=== PATIENT | female | born 1945 | race Caucasian/White ===

== ENCOUNTER 2017-11-10 17:48 | Inpatient (IN) | payer MEDICARE ==
[2017-11-10 18:41] LABS: #Eosinphils 0.2 thou/uL (0.0-0.7); #Lymphocytes 2.2 thou/uL (1.20-3.40); #Monocytes 0.5 thou/uL (0.11-0.59); #Neutrophils 4.3 thou/uL (1.40-6.50); %Basophils 0.5 % (0.0-1.0); %Eosinophils 3.2 % (0.0-10.0); %Lymphocytes 29.8 % (21.0-51.0); %Monocytes 7.1 % (0.0-10.0); %Neutrophils 59.5 % (42.0-75.0); Hemoglobin 13.3 g/dL (12.0-16.0); Mean Corpuscular HGB CONC 32.5 g/dL (32.0-36.0); Mean Corpuscular Hemoglobin 29.1 pg (27.0-31.0); Mean Corpuscular Volume 89.5 fl (81.0-99.0); Mean Platelet Volume 8.3 fL (7.4-10.4); Platelet Count 252 thou/uL (130-400); RBC Distribution Width 12.4 % (11.5-14.5); Red Blood Cell (RBC) Count 4.56 mill/uL (4.20-5.40); White Blood Cell (WBC) Count 7.3 thou/uL (4.8-10.8)
[2017-11-10 19:00] LABS: ALT (SGPT) 21 U/L (8-55); AST (SGOT) 20 U/L (5-34); Alkaline Phosphatase 48 U/L (40-150); Anion Gap 10 mmol/L (10-20); BUN (Urea Nitrogen) 19 mg/dL (9.8-20.1); Bilirubin, Total 0.6 mg/dL (0.2-1.2); Calc. Creatinine Clearance 0 mL/min (70-130); Calcium 10.5 mg/dL (7.8-10.44); Carbon Dioxide 27 mmol/L (23-31); Chloride 106 mmol/L (98-107); Estimated GFR-MDRD 59; Globulin 3.2 g/dL (2.4-3.5); Glucose 100 mg/dL (83-110); Potassium 4.3 mmol/L (3.5-5.1); Protein, Total 7.2 g/dL (6.0-8.3); Sodium 139 mmol/L (136-145)
[2017-11-10] MEDS ORDERED: Sodium Chloride 0.9% 1,000 ML IV SCH ×2 (20:15→22:15)
[2017-11-10] MEDS ORDERED: Ondansetron ODT 4 MG TAB SL PRN (21:47)
[2017-11-10] MEDS ORDERED: Ondansetron HCl/PF 4 MG/2 ML Vial IVP PRN (21:47)
[2017-11-10 22:53] VITALS: BMI 28.8
[2017-11-10] MEDS ORDERED: GoLYTELY 4,000 ml Bottle PO SCH (23:15)
[2017-11-10] MEDS: Sodium Chloride 0.9% 1,000 ML IV SCH (23:26)
[2017-11-11] MEDS ORDERED: Ondansetron ODT 4 MG TAB PO PRN (03:16)
[2017-11-11] MEDS ORDERED: Ondansetron HCl/PF 4 MG/2 ML Vial IVP PRN ×2 (03:16→10:36)
[2017-11-11] MEDS ORDERED: Calcium Carbonate 500 MG ChewTAB PO PRN (03:16)
[2017-11-11] MEDS ORDERED: Acetaminophen 325 MG TAB PO PRN (03:16)
[2017-11-11 03:24] LABS: Hemoglobin 10.3 g/dL (12.0-16.0)
[2017-11-11] MEDS ORDERED: Pantoprazole 40 MG VIAL IVP SCH (03:30)
--- NOTE | 2017-11-11 03:39 | HP ---
DATE OF ADMISSION: 11/10/2017 Patient was seen and examined on 11/10/2017. CHIEF COMPLAINT: Painless lower gastrointestinal bleeding. HISTORY OF PRESENT ILLNESS: Patient is a 72-year-old female with atrial fibrillation, currently on 3 25 mg aspirin, presented to the emergency room with above complaints. Around 3:30 p.m. while she was at home, patient noticed bright red blood in the toilet with small shayla unt of stool. She had another 2 episodes in the emergency room and the fourth episode around 10:00 p .m. while on the floor. She denied any abdominal pain, however, felt slightly nauseous. She denies any use of nonsteroidal anti-inflammatory drug use. She denies any history of EGD or colonoscopy in the past. No similar episodes in the past. She felt somewhat lightheaded and weak; however, denies any syncope, chest pain, or palpitations. PAST MEDICAL HISTORY: 1. Atrial fibrillation. 2. Hypothyroidism. PAST SURGICAL HISTORY: 1. Tubal ligation. 2. section. 3. Left lumpectomy. 4. Right wrist resection. ALLERGIES: Patient is allergic to PENICILLIN and SULFA. HOME MEDICATIONS: Aspirin 325 mg daily, levothyroxine 112 mcg daily, Toprol-XL 12.5 mg at bedtime, m ultivitamin daily, calcium with vitamin D daily. SOCIAL HISTORY: Patient currently lives at home. No smoking, alcohol, drug use. She is FULL CODE, makes her own decision with the help of her family. FAMILY HISTORY: Both parents with CVA. REVIEW OF SYSTEMS: The following complete review of systems was negative, unless otherwise mentioned in the HPI or below: Constitutional: Weight loss or gain, ability to conduct usual activities. Sk in: Rash, itching. Eyes: Double vision, pain. ENT/Mouth: Nose bleeding, neck stiffness, pain, te nderness. Cardiovascular: Palpitations, dyspnea on exertion, orthopnea. Respiratory: Shortness of breath, wheezing, cough, hemoptysis, fever, or night sweats. Gastrointestinal: Poor appetite, abdo kiara pain, heartburn, nausea, vomiting, constipation, or diarrhea. Genitourinary: Urgency, frequen cy, dysuria, nocturia. Musculoskeletal: Pain, swelling. Neurologic/Psychiatric: Anxiety, depressi on. Allergy/Immunologic: Skin rash, bleeding tendency. PHYSICAL EXAMINATION: VITAL SIGNS: In the emergency room, temperature 98.6, respiration 18, pulse of 76, blood pressure of 165/83, O2 saturation 98% on room air. GENERAL: A 72-year-old female in no apparent distress, feels generally weak. HEENT: Head atraumatic, normocephalic. Sclerae anicteric. Pale conjunctivae. No oral lesion. NECK: Supple, no JVD, no carotid bruit. LUNGS: Clear to auscultation bilaterally. No wheezing, rales, or rhonchi. HEART: S1, S2 present. Regular rate and rhythm. No rubs or gallops appreciated. ABDOMEN: Soft, nontender, bowel sounds present. No rebound or guarding. Rectal examination done in the emergency room showed gross blood per ER report. EXTREMITIES: No edema or calf tenderness. NEUROLOGIC: Grossly nonfocal. Moves all four extremities. PSYCHIATRY: Alert, awake, oriented x3. SKIN: Warm and dry. LYMPH NODES: No palpable lymph nodes in the neck. PERIPHERAL VASCULAR: Radial pulses palpable bilaterally. MUSCULOSKELETAL: No joint swelling or tenderness. LABORATORY DATA AND X-RAY FINDINGS: H&H on admission 13.3, repeat H&H at 2230 was 11.0. BUN 19, creatinine 0.93 with normal sodium, potassium, chloride, calcium of 10.5. Stool for occult b lood was positive. Telemetry monitoring by my review showed sinus rhythm. Chest x-ray by my review from last admission showed borderline cardiomegaly. Stress test was negative last admission. Echocardiogram showed normal EF, last admission. IMPRESSION: 1. Painless lower gastrointestinal bleeding suspected secondary to diverticular bleed. 2. Anemia secondary to gastrointestinal blood loss. 3. Hypotension. Lowest blood pressure was 85/53 at around 2200. 4. Paroxysmal atrial fibrillation on aspirin 325 mg daily. 5. Chronic kidney disease, stage 2. 6. Hypothyroidism. PLAN: Patient was transferred to intermediate care unit due to hypotension after another episode of GI bleeding while on the observation floor. Patient will be changed to inpatient admit. Hold aspiri n for now. I discussed with GI on-call, Dr. Ibarra. GoLYTELY will be started. H&H will be monitored every 4 hourly for now. We will check orthostatic vitals in a.m. We will transfuse if the H&H drop s below 7. Plan of care was discussed with the patient in detail. She stated understanding.
[2017-11-11] MEDS: Sodium Chloride 0.9% 1,000 ML IV SCH ×3 (04:49→20:36)
[2017-11-11 06:46] LABS: Hemoglobin 9.9 g/dL (12.0-16.0)
[2017-11-11 07:23] LABS: Anion Gap 6 mmol/L (10-20); BUN (Urea Nitrogen) 17 mg/dL (9.8-20.1); Calc. Creatinine Clearance 94 mL/min (70-130); Calcium 8.9 mg/dL (7.8-10.44); Carbon Dioxide 25 mmol/L (23-31); Chloride 110 mmol/L (98-107); Estimated GFR-MDRD 78; Glucose 102 mg/dL (83-110); Potassium 4.3 mmol/L (3.5-5.1); Sodium 137 mmol/L (136-145)
[2017-11-11] MEDS: Pantoprazole 40 MG VIAL IVP SCH ×2 (08:08→20:37)
[2017-11-11] MEDS ORDERED: Chloraseptic Spray 180 ml Bottle PO PRN (08:44)
[2017-11-11] MEDS ORDERED: hydrALAZINE 20 MG/ML VIAL SLOW IVP PRN (08:44)
[2017-11-11] MEDS ORDERED: Loratadine 10 MG TAB PO PRN (08:44)
[2017-11-11] MEDS ORDERED: Loperamide HCl 2 MG CAP PO PRN (08:44)
[2017-11-11] MEDS ORDERED: Eucerin (Mineral Oil/Petrolatum,White) 30 gm Jar TOP PRN (08:44)
[2017-11-11] MEDS ORDERED: Mag-Al 1200 mg/1200 mg/30 ML UDCUP PO PRN (08:44)
[2017-11-11] MEDS ORDERED: HYDROcodone/Acetaminophen 5/325 mg Tablet PO PRN (08:44)
[2017-11-11] MEDS ORDERED: Senokot 8.6 MG TAB PO PRN (08:44)
[2017-11-11] MEDS ORDERED: Sodium Chloride 0.65% Nasal 44 ML BOT EA NARE PRN (08:44)
[2017-11-11] MEDS ORDERED: Zolpidem Tartrate 5 MG TAB PO PRN (08:44)
[2017-11-11] MEDS ORDERED: Artificial Tears 18 DROP/0.9 ML EA EYE PRN (08:44)
[2017-11-11] MEDS ORDERED: Milk Of Magnesia 30 ML UDCUP PO PRN (08:44)
[2017-11-11] MEDS ORDERED: Diabetic Tussin 200 MG/10 ML UDCUP PO PRN (08:44)
--- NOTE | 2017-11-11 09:50 | CON ---
DATE OF CONSULTATION: 11/11/2017 REASON FOR CONSULTATION: Hematochezia. CONSULTING PHYSICIAN: Santiago Duran M.D. HISTORY OF PRESENT ILLNESS: The patient is a 72-year-old female with past medical history of hypothy roidism and atrial fibrillation on full strength aspirin, presenting with complaints of hematochezia. She states that she was in her usual state of health until approximately 3:00 yesterday when she quintanilla d "gurgling of her stomach" that was shortly followed by diarrhea bowel movement. The diarrhea bowel movement that she had consisted of a mix of bright red blood per rectum as well as darker colored st ool. Blood was present both in the toilet and on the toilet paper. Subsequently, she has 3 addition al grossly bloody bowel movements (2 more at home and one in the ER) with very little blood mixed and very little stool mixed in with the blood. During these particular episodes of hematochezia, she de nied any other symptoms including nausea, vomiting, fevers, chills, abdominal pain, hematemesis or me socrates. She denies any upper or lower endoscopy in the past. She also denies any family history of co zbigniew polyps or colon cancer. REVIEW OF SYSTEMS: A 10 review category review of systems was obtained with all responses negative e xcept for the pertinent positives as listed in the HPI. PAST MEDICAL HISTORY: As per HPI. PAST SURGICAL HISTORY: Bilateral tubal ligation, section, left breast lumpectomy and right wrist surgery. FAMILY HISTORY: Stroke (mother and father). Denies any GI malignancies. SOCIAL HISTORY: Denies any tobacco, alcohol, or illicit drug use. OUTPATIENT MEDICATIONS: Reviewed. ALLERGIES: PENICILLIN and SULFA. PHYSICAL EXAMINATION: VITAL SIGNS: Temperature 98.5, pulse 66, blood pressure 115/50, respiratory rate 16, satting 98% on room air. GENERAL: The patient is lying in bed in no acute distress. Alert and oriented x4. NECK: Supple. No JVD noted. CARDIOVASCULAR: Regular rate and rhythm. No discernible murmurs, gallops or rubs. RESPIRATORY: Clear to auscultation bilaterally with no discernible wheezes or rales. ABDOMEN: Hyperactive bowel sounds. Soft, nontender and nondistended. EXTREMITIES: No cyanosis, clubbing or edema. LABORATORY DATA: CBC with white blood cell count of 7.3, hemoglobin 9.9, hematocrit 30.1, platelets 252. Chemistry with sodium of 137, potassium 4.3, chloride 110, CO2 25, BUN 17, creatinine 0.73, glu cose 102, AST 20, ALT 21, alkaline phosphatase 48, and total bilirubin 0.6. IMAGING DATA: No current GI imaging is available for review. ASSESSMENT AND PLAN: The patient is a 72-year-old female with past medical history of hypothyroidism and atrial fibrillation on full strength aspirin, presenting with hematochezia concerning for divert icular bleeding. Hematochezia. The patient is presenting with acute onset of grossly bloody bowel movements with no o ther associated symptoms. Given the grossly bloody bowel movements and a significant drop in her hem oglobin and hematocrit, this is highly suspicious for a diverticular bleed given the arterial nature of these types of bleeds and while she has never had a colonoscopy, the differential could also inclu de AVMs, Dieulafoy lesions, colitis, stercoral colitis (much less likely) internal hemorrhoids and/or malignancy. RECOMMENDATIONS: 1. Would continue to trend hemoglobin and hematocrit and transfuse as necessary to maintain an hemog lobin and hematocrit of 7/21. 2. Would continue to monitor clinically for signs of active gastrointestinal bleeding. 3. Please make patient n.p.o. and we will plan for colonoscopy later this morning. She has already been given the GoLYTELY in preparation for this procedure. 4. Further recommendations to follow colonoscopy. We will continue to follow. Please call with any questions.
[2017-11-11] MEDS: Levothyroxine Sodium 112 MCG TAB PO SCH (10:24)
[2017-11-11] MEDS ORDERED: Promethazine HCl 25 MG/ML VIAL IM PRN (10:36)
[2017-11-11] MEDS ORDERED: Promethazine HCl 25 MG/ML VIAL SLOW IVP PRN (10:36)
--- NOTE | 2017-11-11 11:21 | PDOC.PN ---
- Subjective Encounter Start Date: 11/11/17 Encounter Start Time: 09:50 -: old records requested/rev Patient seen and examined. No new complaints. No overnight events pt does not have any further bleeding - Objective Resuscitation Status: Resuscitation Status FULL:Full Resuscitation MAR Reviewed: Yes Vital Signs & Weight: Vital Signs (12 hours) Temp Pulse Resp BP Pulse Ox 11/11/17 08:00 98.5 F 66 16 98 11/11/17 07:00 98.5 F 66 16 115/50 L 98 11/11/17 04:00 97.3 F L 71 17 121/55 L 96 Weight Weight 188 lb 5 oz I&O: 11/10/17 11/11/17 11/12/17 06:59 06:59 06:59 Intake Total 5150 Balance 5150 Result Diagrams: 11/11/17 06:37 11/11/17 06:37 EKG Reviewed by me: Yes Phys Exam - Physical Examination Constitutional: NAD HEENT: PERRLA, moist MMs, sclera anicteric Neck: no JVD, supple Respiratory: no wheezing, no rales, no rhonchi Cardiovascular: RRR, no significant murmur, no rub Gastrointestinal: soft, non-tender, no distention, positive bowel sounds Musculoskeletal: no edema, pulses present Neurological: non-focal, normal sensation, moves all 4 limbs Lymphatic: no nodes Psychiatric: normal affect, A&O x 3 Skin: no rash, normal turgor Dx/Plan (1) Acute lower GI bleeding Code(s): K92.2 - GASTROINTESTINAL HEMORRHAGE, UNSPECIFIED Status: Acute Comment: likely diverticular bleed (2) Anemia due to acute blood loss Code(s): D62 - ACUTE POSTHEMORRHAGIC ANEMIA Status: Acute (3) Hypotension due to blood loss Code(s): I95.89 - OTHER HYPOTENSION Status: Resolved (4) CKD (chronic kidney disease) stage 2, GFR 60-89 ml/min Code(s): N18.2 - CHRONIC KIDNEY DISEASE, STAGE 2 (MILD) Status: Chronic (5) Hypothyroidism Code(s): E03.9 - HYPOTHYROIDISM, UNSPECIFIED Status: Chronic (6) Paroxysmal atrial fibrillation Code(s): I48.0 - PAROXYSMAL ATRIAL FIBRILLATION Status: Chronic - Plan cont current plan of care, plan discussed w/ family * today plan for colonoscopy * will monitor today for any recurrent bleeding * repeat labs tomorrow * medication reviewed as below * symptomatic treatment * transfer to medical. Review of Systems - Review of Systems Eyes: negative: Pain, Vision Change, Conjunctivae Inflammation, Eyelid Inflammation, Redness, Other ENT: negative: Ear Pain, Ear Discharge, Nose Pain, Nose Discharge, Nose Congestion, Mouth Pain, Mouth Swelling, Throat Pain, Throat Swelling, Other Respiratory: negative: Cough, Dry, Shortness of Breath, Hemoptysis, SOB with Excertion, Pleuritic Pain, Sputum, Wheezing Cardiovascular: negative: chest pain, palpitations, orthopnea, paroxysmal nocturnal dyspnea, edema, light headedness, other Gastrointestinal: negative: Nausea, Vomiting, Abdominal Pain, Diarrhea, Constipation, Melena, Hematochezia, Other Genitourinary: negative: Dysuria, Frequency, Incontinence, Hematuria, Retention , Other Musculoskeletal: negative: Neck Pain, Shoulder Pain, Arm Pain, Back Pain, Hand Pain, Leg Pain, Foot Pain, Other Skin: negative: Rash, Lesions, Akira, Bruising, Other - Medications/Allergies Allergies/Adverse Reactions: Allergies Allergy/AdvReac Type Severity Reaction Status Date / Time Penicillins Allergy Unknown Verified 11/10/17 22:10 Sulfa (Sulfonamide Allergy Unknown Verified 11/10/17 22:10 Antibiotics) Medications: Current Medications Acetaminophen (Tylenol) 650 mg PO Q4H PRN PRN Reason: Headache/Fever or Pain Hydrocodone Bitart/Acetaminophen ([place] 5/325) 1 tab PO Q4H PRN PRN Reason: Moderate Pain (4-6) Al Hydroxide/Mg Hydroxide (Maalox) 15 ml PO Q4H PRN PRN Reason: Heartburn or Indigestion Artificial Tears (Tears Naturale) 0 drop EA EYE PRN PRN PRN Reason: Dry Eyes Calcium Carbonate (Tums) 1,000 mg PO Q4H PRN PRN Reason: Heartburn or Indigestion Calcium/Vitamin D (Caltrate 600 + Vit D) 1 tab PO HS [facility] Guaifenesin (Robitussin Sf) 200 mg PO Q4H PRN PRN Reason: Cough Hydralazine HCl (Apresoline) 10 mg SLOW IVP Q4H PRN PRN Reason: Systolic BP > 180 Sodium Chloride (Normal Saline 0.9%) 1,000 mls @ 150 mls/hr IV .Q6H40M [facility] Last Admin: 11/11/17 04:49 Dose: 1,000 mls Iron/Minerals/Multivitamins (Theragran M) 1 tab PO HS [facility] Levothyroxine Sodium (Synthroid) 112 mcg PO 0600 [facility] Last Admin: 11/11/17 10:24 Dose: Not Given Loperamide HCl (Imodium) 2 mg PO PRN PRN PRN Reason: Diarrhea/Loose Stools Loratadine (Claritin) 10 mg PO DAILYPRN PRN PRN Reason: Sinus Symptoms Magnesium Hydroxide (Milk Of Magnesium) 30 ml PO DAILYPRN PRN PRN Reason: Constipation Mineral Oil/White Petrolatum (Eucerin Cream) 0 gm TOP BIDPRN PRN PRN Reason: Dry Skin Ondansetron HCl (Zofran Odt) 4 mg PO Q6H PRN PRN Reason: Nausea/Vomiting Ondansetron HCl (Zofran) 4 mg IVP Q6H PRN PRN Reason: Nausea/Vomiting Ondansetron HCl (Pacu-Zofran) 4 mg IVP ONE PRN PRN Reason: Nausea/Vomiting Stop: 11/11/17 13:36 Pantoprazole Sodium (Protonix) 40 mg IVP Q12HR [facility] Last Admin: 11/11/17 08:08 Dose: 40 mg Phenol (Chloraseptic [place] 180 Ml Bot) 0 ml PO PRN PRN PRN Reason: Sore Throat Promethazine HCl (Pacu-Phenergan) 6.25 mg SLOW IVP ONE PRN PRN Reason: Nausea/Vomiting Stop: 11/11/17 13:36 Promethazine HCl (Pacu-Phenergan) 6.25 mg IM ONE PRN PRN Reason: Nausea/Vomiting Stop: 11/11/17 13:36 Senna (Senokot) 2 tab PO HSPRN PRN PRN Reason: Constipation Sodium Chloride (Flush - Normal Saline) 10 ml IVF Q12HR [facility] Last Admin: 11/11/17 08:08 Dose: 10 ml Sodium Chloride (Flush - Normal Saline) 10 ml IVF PRN PRN PRN Reason: Saline Flush Last Admin: 11/10/17 21:59 Dose: 10 ml Sodium Chloride ([place] Nasal Chromo 0.65%) 0 ml EA NARE QIDPRN PRN PRN Reason: Nasal Congestion Zolpidem Tartrate (Ambien) 5 mg PO HSPRN PRN PRN Reason: Insomnia
--- NOTE | 2017-11-11 11:27 | OP ---
DATE OF PROCEDURE: 11/11/2017 PROCEDURE: Colonoscopy (diagnostic). INDICATION FOR PROCEDURE: Hematochezia. DESCRIPTION OF PROCEDURE: After the risks and benefits of the procedure were explained to the patien t including risks of bleeding, infection, perforation, reactions to anesthesia and/or pain, informed consent was obtained. The patient was then taken to the endoscopy suite where deep sedation was admi nistered via propofol and anesthesia support. The standard colonoscope was then introduced into the rectum and advanced to the terminal ileum with mild difficulty that required manual abdominal pressur e to facilitate passage of the scope. The quality of the prep was good with adequate visualization o f the colonic mucosa seen. The patient tolerated the procedure well with no immediate perioperative complications. COLLINS. The patient had small external hemorrhoids noted on external exam. FINDINGS: 1. Normal-appearing mucosa was seen in the terminal ileum. A moderate amount of old red blood was s een throughout the entire colon, but was amenable to aggressive irrigation and suctioning with adequa te visualization of the colonic mucosa achieved. The mucosa was seen. Normal appearing mucosa was s een at the ileocecal valve and appendiceal orifice. Normal mucosa was seen in the ascending, transve rse, and proximal descending colon. Multiple small and large diverticula were seen in the distal luis carlos cending and sigmoid colons with careful inspection of each diverticular taken. There was no etiology . There is no evidence of active bleeding seen in any of the inspected diverticula. Normal mucosa w as seen in the rectum with small internal hemorrhoids seen on rectal retroflexion. IMPRESSION: 1. Moderate to severe left-sided diverticulosis without any evidence of active bleeding seen during this examination. 2. A 3-4 mm polyp was seen at approximately 50 cm past the anal verge. That was not intervened upon due to recent history of hematochezia. 3. Small internal and external hemorrhoids. RECOMMENDATIONS: 1. Continue to trend H&H and transfuse as necessary to maintain an H&H of 7/21. 2. Continue to monitor clinically for signs of active gastrointestinal bleeding/hematochezia. 3. If she continues to display significant hematochezia, we would consider a tagged red blood cell s can for further localization of the GI bleeding and/or CT angiography to determine source of bleeding . 4. We would consider repeat colonoscopy in light of recurrent hematochezia. 5. We would place the patient on clear liquid diet for now and transfer to higher fiber diet if no f urther evidence of gastrointestinal bleeding. 6. We would avoid any anticoagulation for the next 24-48 hours.
[2017-11-11 12:25] LABS: Hemoglobin 9.9 g/dL (12.0-16.0)
[2017-11-11] MEDS ORDERED: Propofol 200 MG/20 ML VIAL ONE (15:57)
[2017-11-11] MEDS ORDERED: PHENYLEPHRINE-NS 100 MCG/ML 10 ML SYRINGE ONE (15:57)
[2017-11-11 17:55] LABS: Hemoglobin 10.2 g/dL (12.0-16.0)
[2017-11-11] MEDS ORDERED: Non-Formulary Item 1 EACH (Calcium Carbonate/Vitamin D3 [Calcium 600 + Vitamin D] 1 TABLE PO SCH (21:00)
[2017-11-11] MEDS ORDERED: Calcium Carbonate + Vit D 1 TAB PO SCH (21:00)
[2017-11-12 04:20] LABS: #Eosinphils 0.4 thou/uL (0.0-0.7); #Lymphocytes 1.5 thou/uL (1.20-3.40); #Monocytes 0.4 thou/uL (0.11-0.59); #Neutrophils 2.2 thou/uL (1.40-6.50); %Basophils 0.8 % (0.0-1.0); %Eosinophils 7.9 % (0.0-10.0); %Monocytes 9.3 % (0.0-10.0); %Neutrophils 49.1 % (42.0-75.0); Hemoglobin 9.3 g/dL (12.0-16.0); Mean Corpuscular HGB CONC 33.3 g/dL (32.0-36.0); Mean Corpuscular Hemoglobin 30.3 pg (27.0-31.0); Mean Corpuscular Volume 90.9 fl (81.0-99.0); Mean Platelet Volume 8.3 fL (7.4-10.4); Platelet Count 192 thou/uL (130-400); RBC Distribution Width 12.3 % (11.5-14.5); Red Blood Cell (RBC) Count 3.07 mill/uL (4.20-5.40); White Blood Cell (WBC) Count 4.6 thou/uL (4.8-10.8)
[2017-11-12 04:26] LABS: Anion Gap 8 mmol/L (10-20); BUN (Urea Nitrogen) 7 mg/dL (9.8-20.1); Calc. Creatinine Clearance 98 mL/min (70-130); Calcium 9.1 mg/dL (7.8-10.44); Carbon Dioxide 23 mmol/L (23-31); Chloride 114 mmol/L (98-107); Estimated GFR-MDRD 82; Glucose 91 mg/dL (83-110); Potassium 3.8 mmol/L (3.5-5.1); Sodium 141 mmol/L (136-145)
[2017-11-12] MEDS: Sodium Chloride 0.9% 1,000 ML IV SCH (04:51)
[2017-11-12] MEDS: Levothyroxine Sodium 112 MCG TAB PO SCH (06:11)
[2017-11-12] MEDS ORDERED: Sodium Chloride 0.9% 1,000 ML IV SCH (07:45)
--- NOTE | 2017-11-12 10:40 | PDOC.PN ---
- Subjective Encounter Start Date: 11/12/17 Encounter Start Time: 10:00 Patient seen and examined. No new complaints. No overnight events - Objective Resuscitation Status: Resuscitation Status FULL:Full Resuscitation MAR Reviewed: Yes Vital Signs & Weight: Vital Signs (12 hours) Temp Pulse Resp BP BP BP Pulse Ox 11/12/17 08:00 98.5 F 69 20 95 11/12/17 07:43 98.5 F 69 20 133/56 L 95 11/12/17 03:36 98.5 F 70 16 110/41 L 95 11/12/17 00:00 98.5 F 77 16 106/40 L 96 Weight Weight 192 lb 3.2 oz I&O: 11/11/17 11/12/17 11/13/17 06:59 06:59 06:59 Intake Total 5150 4750 Output Total 2800 Balance 5150 1950 Result Diagrams: 11/12/17 03:11 11/12/17 03:11 EKG Reviewed by me: Yes Phys Exam - Physical Examination Constitutional: NAD HEENT: PERRLA, moist MMs, sclera anicteric Neck: no JVD, supple Respiratory: no wheezing, no rales, no rhonchi Cardiovascular: RRR, no significant murmur, no rub Gastrointestinal: soft, non-tender, no distention, positive bowel sounds Musculoskeletal: no edema, pulses present Neurological: non-focal, normal sensation, moves all 4 limbs Psychiatric: normal affect, A&O x 3 Skin: no rash, normal turgor Dx/Plan (1) Acute lower GI bleeding Code(s): K92.2 - GASTROINTESTINAL HEMORRHAGE, UNSPECIFIED Status: Acute Comment: likely diverticular bleed (2) Anemia due to acute blood loss Code(s): D62 - ACUTE POSTHEMORRHAGIC ANEMIA Status: Acute (3) Hypotension due to blood loss Code(s): I95.89 - OTHER HYPOTENSION Status: Resolved (4) CKD (chronic kidney disease) stage 2, GFR 60-89 ml/min Code(s): N18.2 - CHRONIC KIDNEY DISEASE, STAGE 2 (MILD) Status: Chronic (5) Hypothyroidism Code(s): E03.9 - HYPOTHYROIDISM, UNSPECIFIED Status: Chronic (6) Paroxysmal atrial fibrillation Code(s): I48.0 - PAROXYSMAL ATRIAL FIBRILLATION Status: Chronic - Plan cont current plan of care * no further bleeding * vitals stable * H & H stable * medication reviewed as below * symptomatic treatment * stable for discharge * see discharge barb. Review of Systems - Review of Systems ENT: negative: Ear Pain, Ear Discharge, Nose Pain, Nose Discharge, Nose Congestion, Mouth Pain, Mouth Swelling, Throat Pain, Throat Swelling, Other Respiratory: negative: Cough, Dry, Shortness of Breath, Hemoptysis, SOB with Excertion, Pleuritic Pain, Sputum, Wheezing Cardiovascular: negative: chest pain, palpitations, orthopnea, paroxysmal nocturnal dyspnea, edema, light headedness, other Gastrointestinal: negative: Nausea, Vomiting, Abdominal Pain, Diarrhea, Constipation, Melena, Hematochezia, Other Genitourinary: negative: Dysuria, Frequency, Incontinence, Hematuria, Retention , Other Musculoskeletal: negative: Neck Pain, Shoulder Pain, Arm Pain, Back Pain, Hand Pain, Leg Pain, Foot Pain, Other Skin: negative: Rash, Lesions, Akira, Bruising, Other - Medications/Allergies Allergies/Adverse Reactions: Allergies Allergy/AdvReac Type Severity Reaction Status Date / Time Penicillins Allergy Unknown Verified 11/10/17 22:10 Sulfa (Sulfonamide Allergy Unknown Verified 11/10/17 22:10 Antibiotics) Medications: Current Medications Acetaminophen (Tylenol) 650 mg PO Q4H PRN PRN Reason: Headache/Fever or Pain Last Admin: 11/11/17 22:18 Dose: 650 mg Hydrocodone Bitart/Acetaminophen ([place] 5/325) 1 tab PO Q4H PRN PRN Reason: Moderate Pain (4-6) Al Hydroxide/Mg Hydroxide (Maalox) 15 ml PO Q4H PRN PRN Reason: Heartburn or Indigestion Artificial Tears (Tears Naturale) 0 drop EA EYE PRN PRN PRN Reason: Dry Eyes Calcium Carbonate (Tums) 1,000 mg PO Q4H PRN PRN Reason: Heartburn or Indigestion Calcium/Vitamin D (Caltrate 600 + Vit D) 1 tab PO [facility] Last Admin: 11/11/17 20:37 Dose: 1 tab Ferrous Sulfate (Feosol) 325 mg PO BID[facility] Guaifenesin (Robitussin Sf) 200 mg PO Q4H PRN PRN Reason: Cough Hydralazine HCl (Apresoline) 10 mg SLOW IVP Q4H PRN PRN Reason: Systolic BP > 180 Iron/Minerals/Multivitamins (Theragran M) 1 tab PO HS [facility] Levothyroxine Sodium (Synthroid) 112 mcg PO 0600 [facility] Last Admin: 11/12/17 06:11 Dose: 112 mcg Loperamide HCl (Imodium) 2 mg PO PRN PRN PRN Reason: Diarrhea/Loose Stools Loratadine (Claritin) 10 mg PO DAILYPRN PRN PRN Reason: Sinus Symptoms Magnesium Hydroxide (Milk Of Magnesium) 30 ml PO DAILYPRN PRN PRN Reason: Constipation Mineral Oil/White Petrolatum (Eucerin Cream) 0 gm TOP BIDPRN PRN PRN Reason: Dry Skin Ondansetron HCl (Zofran Odt) 4 mg PO Q6H PRN PRN Reason: Nausea/Vomiting Ondansetron HCl (Zofran) 4 mg IVP Q6H PRN PRN Reason: Nausea/Vomiting Pantoprazole Sodium (Protonix) 40 mg PO DAILY [facility] Last Admin: 11/12/17 09:27 Dose: Not Given Phenol (Chloraseptic [place] 180 Ml Bot) 0 ml PO PRN PRN PRN Reason: Sore Throat Senna (Senokot) 2 tab PO HSPRN PRN PRN Reason: Constipation Sodium Chloride (Flush - Normal Saline) 10 ml IVF Q12HR [facility] Last Admin: 11/12/17 08:51 Dose: 10 ml Sodium Chloride (Flush - Normal Saline) 10 ml IVF PRN PRN PRN Reason: Saline Flush Last Admin: 11/10/17 21:59 Dose: 10 ml Sodium Chloride ([place] Nasal [place] 0.65%) 0 ml EA NARE QIDPRN PRN PRN Reason: Nasal Congestion Zolpidem Tartrate (Ambien) 5 mg PO HSPRN PRN PRN Reason: Insomnia
[2017-11-12 11:32] VITALS: BP 126/49; TEMP 98.3
--- NOTE | 2017-11-12 11:34 | DIS ---
DATE OF ADMISSION: 11/10/2017 DATE OF DISCHARGE: 11/12/2017 PRIMARY CARE PHYSICIAN: Chris Bird M.D. DISCHARGE DISPOSITION: Home. PRIMARY DISCHARGE DIAGNOSES: 1. Acute lower gastrointestinal bleed, pain and bleeding, likely due to diverticular bleed. 2. Anemia due to acute blood loss. 3. Hypotension due to acute blood loss. SECONDARY DISCHARGE DIAGNOSES: Paroxysmal atrial fibrillation, hypothyroidism, chronic kidney diseas e stage, and diverticulosis. PRIMARY PROCEDURE/OPERATION: Colonoscopy was done by Dr. Rigoberto Ibarra and found with diverticulosis. RADIOLOGICAL INVESTIGATION: None. SIGNIFICANT LABORATORY DATA: WBC 4.6, hemoglobin 9.3, platelet 192. Sodium 141, creatinine 0.70. L FT normal. DISCHARGE MEDICATIONS: Aspirin 325 mg p.o. at bedtime, start tomorrow. Calcium with vitamin D one t ablet p.o. at bedtime, ferrous sulfate 325 mg p.o. b.i.d., Synthroid 112 mcg p.o. daily, Toprol-XL 12 .5 mg p.o. at bedtime, multivitamin 1 capsule p.o. at bedtime, and Protonix 40 mg p.o. daily. CONTRAINDICATIONS: None. CODE STATUS: FULL CODE. INPATIENT CONSULTANTS: Dr. Rigoberto Ibarra, GI, was consulted while in hospital. TEST RESULTS PENDING ON DISCHARGE: None. ALLERGIES: PENICILLIN and SULFA DRUGS. DISCHARGE PLAN: Post hospital, the patient is instructed to follow up with primary care physician in 1 week. HOSPITAL COURSE: A 72-year-old female with above-mentioned medical problem was admitted by Dr. Santiago Duran. Please see his H and P for further detail. This patient was having hematochezia which was p ainless. The patient had several bowel movements with blood and that is why she was alarmed and came to emergency room for evaluation. Initially, patient was hemodynamically stable, but with hematoche wiliam, patient became hypotensive and that is why she required upgradation to IMCU admission. Her bloo d pressure was low which was improved significantly after IV fluid therapy. This patient was observe d with serial H and H, but she did not require any blood transfusion during this admission. Gastroen terologist was consulted and patient underwent colonoscopy and found with diverticulosis without any other pathology. We are suspecting patient's painless lower gastrointestinal bleeding is related wit h diverticular bleeding. Since couple of days, patient does not have any further bleeding since admission. While in hospital, she remained hemodynamically stable and she did not have any kind of bleeding episode while in [facility]. The patient's H and H also remained stable and her vitals also improved. She will continue all her previous medication as above. The patient is seen and examined at bedside today. Please see my progress note from today for furthe r details.
[2017-11-12] MEDS ORDERED: Ferrous Sulfate 325 MG TAB PO SCH (17:00)
[2017-11-12] MEDS ORDERED: Multivitamin W/ Minerals 1 TAB PO SCH (21:00)
== END 2017-11-12 15:10 | disposition home or self-care (01) | DRG 378 ==
LOC: ERS 17:48 → 2SW 19:45 → OBSVTOIN 19:45 → IMCU/EMU 22:39
PROVIDERS: ADMIT Internal Medicine; ATTEND Internal Medicine
PROC: 0DJD8ZZ Inspection of Lower Intestinal Tract, Via Natural or Artificial Opening Endoscopic (ICD-10-PCS; principal; 2017-11-11)
DX: K57.31 Diverticulosis of large intestine without perforation or abscess with bleeding (principal); D62 Acute posthemorrhagic anemia; I95.9 Hypotension, unspecified; I48.0 Paroxysmal atrial fibrillation; D50.0 Iron deficiency anemia secondary to blood loss (chronic); E03.9 Hypothyroidism, unspecified; Z79.82 Long term (current) use of aspirin; K64.4 Residual hemorrhoidal skin tags; K64.8 Other hemorrhoids; K63.5 Polyp of colon
CPT/HCPCS: 36415; 36416; 80048; 80053; 82274; 85014; 85018; 85025; 86850; 86900; 86901; 99285; C9113; J2704